=== PATIENT | female | born 1950 | race Caucasian/White ===

== ENCOUNTER 2022-07-21 09:46 | Day surgery (SDC) | payer MEDICARE, OTHER, SELFPAY ==
[2022-07-21 10:10] VITALS: BP 138/83; PULSE 83; RESP 18; TEMP 37.3; O2SAT 100; BMI 24.0
[2022-07-21] MEDS: LACTATED RINGERS 1,000 ML 100 ML IV (10:25)
--- NOTE | 2022-07-21 10:33 | P.HP_ITS ---
History of Present Illness History of Present Illness Date Patient Seen: 07/21/22 Time Patient Seen: 10:33 Chief complaint: Colonoscopy Narrative: Colon cancer screening. Last colonoscopy approximately 15 years ago. No family history or symptoms currently [facility] Social History household members: none Smoking Status: Never smoker alcohol intake: current Meds Home Medications and Allergies Home Medications Medication Instructions Recorded Confirmed Type sodium,potassium,mag sulfates 17.5 See Rx Instructions PO .COMPLEX 06/21/22 07/21/22 Rx gram-3.13 gram-1.6 gram oral soln #354 mL (Suprep Bowel Prep Kit) atorvastatin 10 mg tablet 10 mg PO BEDTIME 07/21/22 07/21/22 History magnesium oxide 140 mg capsule 140 mg PO DAILY 07/21/22 07/21/22 History Allergies Allergy/AdvReac Type Severity Reaction Status Date / Time Opioids - Morphine Analogues AdvReac Intermediate Fainting Verified 07/21/22 10:18 morphine [MORPHINE] AdvReac Unknown STATES Verified 07/21/22 10:04 STOPS MY BREATHING Review of Systems Review of Systems ROS: Yes All systems reviewed with the patient and are negative except as otherwise documented Exam Vital Signs (past 8 hours): - 07/21/22 10:10 Temperature 99.1 F Pulse Rate 83 Respiratory Rate 18 Blood Pressure 138/83 Pulse Oximetry 100 Oxygen Delivery Method Room Air Oxygen Delivery Method Room Air Const General: cooperative and healthy appearing Nutritional Appearance: average body habitus HENMT Head: normocephalic and atraumatic Eyes General: appearance normal, both eyes and all related structures Neck Neck: trachea midline Chest Chest: normal inspection of the chest Resp Effort & Inspection: normal respiratory effort and able to speak in complete sentences Cardio Rate: regular rate Rhythm: regular rhythm GI Palpation: soft Skin General: atrophy Neuro General: patient alert, patient awake and patient oriented x3 Psych Mental Status: mental status grossly normal Judgment: judgment good Assessment & Plan Assessment & Plan narrative: Colon cancer screening using colonoscopy under MAC COVID-19 COVID-19 status: Negative Time Spent With Patient Time with patient: less than 30 minutes
--- NOTE | 2022-07-21 10:51 | PM.OP.COLON ---
Operative Date/Time/Diagnoses Date of procedure: 07/21/22 Time of procedure: 10:51 Pre-op diagnosis: Colon cancer screening Post-op diagnosis: same Procedure & Clinicians Study performed: Colonoscopy under MAC Same procedure as scheduled: Yes Indications: Colon cancer screening Surgeon: Remedios Hitchcock Procedure Notes Procedure in detail: Preop diagnosis: Colon cancer screening Postop diagnosis: Same Operative procedure: Colonoscopy under MAC Surgeon: Marian Hitchcock MD Findings: No significant diverticulosis. No polyps Procedure: Patient placed in a lateral position. Rectal exam performed showing normal tone no masses. Colonoscope inserted into the rectum and advanced to the ileocecal valve with minimal difficulty. Insufflation and extraction of the scope and the above findings. Retroflex was included in the rectum Impression: Normal colonoscopy. No significant diverticulosis, no polyps Plan: Repeat colonoscopy in 10 years unless otherwise indicated by change in clinical condition Specimen(s): none sent Complications: none Post-procedure Recommendations: Colonoscopy in 10 years Follow up: as needed Disposition: PACU
[2022-07-21 10:53] VITALS: BP 92/51; PULSE 91; RESP 16; TEMP 37.1; O2SAT 96
[2022-07-21 10:57] VITALS: BP 102/57; PULSE 92; RESP 12; O2SAT 98
[2022-07-21 11:02] VITALS: BP 115/70; PULSE 76; RESP 16; O2SAT 99
[2022-07-21 11:08] VITALS: BP 112/68; PULSE 77; RESP 16; O2SAT 99
== END 2022-07-21 11:21 | disposition home or self-care (01) ==
PROVIDERS: PCP Physician Assistant; Referring Provider Surgery; Visit Provider Surgery
PROC: 0DJD8ZZ Inspection of Lower Intestinal Tract, Via Natural or Artificial Opening Endoscopic (ICD-10-PCS; CPT 45378; principal; 2022-07-21 10:45)
DX: Z12.11 Encounter for screening for malignant neoplasm of colon (principal)
CPT/HCPCS: G0121; J2704

== ENCOUNTER → 2023-06-08 11:11 | Outpatient (CLI) | payer MEDICARE, OTHER, SELFPAY ==
--- NOTE | 2023-06-08 11:12 | DI.RAD.S_ITS ---
PROCEDURE: FL BARIUM SWALLOW INDICATIONS: Left upper quadrant pain after eating COMPARISON: None. FINDINGS: Function: There is normal esophageal peristalsis. There is severe gastroesophageal reflux. There is normal transit of a calibrated barium tablet through the esophagus into the stomach. Morphology: Air-contrast images demonstrate normal mucosal morphology. There is a small sliding hiatal hernia. No esophageal strictures, extrinsic mass effects, or diverticula. Limited images of the stomach demonstrate normal appearance. IMPRESSION: 1. Severe gastroesophageal reflux. 2. Small sliding hiatal hernia. Dictated by: Josefina Bales M.D. on 06/08/2023 at 14:57 Approved by: Josefina Bales M.D. on 06/08/2023 at 14:58
== END ==
LOC: RAD 11:12
PROVIDERS: PCP Physician Assistant; Referring Provider Surgery; Visit Provider Surgery
DX: K21.9 Gastro-esophageal reflux disease without esophagitis (principal); K44.9 Diaphragmatic hernia without obstruction or gangrene; R10.9 Unspecified abdominal pain
CPT/HCPCS: 74220